=== PATIENT | male | born 1970 | race Caucasian/White ===

== ENCOUNTER 2020-11-29 15:15 | Emergency (ER) | payer OTHER ==
[~2020-11-29] VITALS: Ht 170.2 cm; Wt 61.2 kg
[2020-11-29] MEDS ORDERED: IBUPROFEN 600 MG TAB PO ONE (15:23)
[2020-11-29] MEDS ORDERED: ONDANSETRON HCL 4 MG/2 ML VIAL ONE (15:51)
[2020-11-29] MEDS ORDERED: MORPHINE SULFATE 4 MG/ML SYR/VIAL ONE (15:51)
[2020-11-29] MEDS ORDERED: MORPHINE SULFATE 4 MG/ML SYR/VIAL IV ONE (16:15)
[2020-11-29] MEDS ORDERED: fentaNYL CITRATE 100 MCG/2 ML VL IV ONE (16:15)
[2020-11-29] MEDS ORDERED: ONDANSETRON HCL 4 MG/2 ML VIAL IV ONE (16:15)
[2020-11-29] MEDS ORDERED: MIDAZOLAM HCL 5 MG/ML-1ML VIAL IV ONE (16:15)
[2020-11-29] MEDS ORDERED: FLUMAZENIL 0.1 MG/ML INJ 10ML MDV IV ONE ×3 (16:43→16:45)
[2020-11-29] MEDS ORDERED: SODIUM CHLORIDE 0.9% 1,000 ML IV ONE (17:15)
[2020-11-29 18:33] VITALS: BP 110/77
== END 2020-11-29 19:08 | disposition home or self-care (01) ==
LOC: ER 15:18
DX: S43.084A Other dislocation of right shoulder joint, initial encounter (principal); X58.XXXA Exposure to other specified factors, initial encounter; Y93.9 Activity, unspecified; Y92.89 Other specified places as the place of occurrence of the external cause; Y99.8 Other external cause status
CPT/HCPCS: 23650; 73020; 73030; 73120; 96361; 96374; 96375; 99152; 99285; J2250; J2270; J2405; J3010